=== PATIENT | female | born 1960 | race Caucasian/White ===

== ENCOUNTER 2021-03-24 11:16 | Inpatient (IN) ==
[2021-03-24] MEDS ORDERED: NS 1000 ML 1,000 ML ONE (11:20)
[2021-03-24 11:33] VITALS: BMI 38.0
[2021-03-24] MEDS ORDERED: NS 1000 ML 1,000 ML IV ONE (11:40)
--- NOTE | 2021-03-24 11:58 | DR.AMS ---
HPI Time Seen Time Seen by Provider: 03/24/21 11:40 PCP Primary Care Physician: Renu Borges HPI Comment HPI Comment: A 61 y/o female brought in to the ED via EMS service, having been found behaving strangely and talking nonsense and to imaginary folks. She was found on the floor in dirty condition. She has been acting strange for the preceding 3 days reportedly. Complaint Chief Complaint:: Pt was found by a family member on the kitchen floor, "talking out of her head", talking to ppl who are not there. Pt is disheveled and dirty, lips have dried blood on them, feet are covered in feces. Per family, pt has been acting erratic and getting worse in last 3 days. COVID-19 Coronavirus risk:travel/contact w/high risk person: No Has patient experienced Coronavirus symptoms: No Reviewed Nurses Notes Reviewed: Yes Source History Provided: Family Member and EMS Mode of Arrival Mode of Arrival: EMS Timing Onset of Chief Complaint: 03/24/21 Came On: Gradually Symptom Onset: Known Onset of Symptoms Start Date: 03/21/21 Quality Quality: Change in Behavior Context Recent: None History Of: Diabetes Associated Signs and Symptoms Associated Signs and Symptoms: None PMH PMH Past Medical History: Yes Past Medical History: Depression and Hyperthyroidism Past Medical History Comment: Graves Disease Past Surgical History: Yes Surgical History: Cholecystectomy, Thyroidectomy and Other Family History History of Family Medical Conditions: Yes Family Medical History: Hypertension Social History Alcohol Use: None Do you use any recreational Drugs:: No Lives With: Alone Lives Where: Home Travel Risk Coronavirus risk:travel/contact w/high risk person: No Has patient experienced Coronavirus symptoms: No Infectious screening In the last 2 months have you had wt loss of >10#?: NO Have you had fever, night sweats or hemotysis?: No Have you traveled outside the country in the last 6 months?: No Isolation: Standard ROS Review of Systems Constitutional: No Symptoms Reported Eyes: No Symptoms Reported ENTM: No Symptoms Reported Respiratoy: No Symptoms Reported Cardiovascular: No Symptoms Reported Gastrointestinal/Abdominal: No Symptoms Reported Genitourinary: No Symptoms Reported Neurological: No Symptoms Reported Musculoskeletal: No Symptoms Reported Integumentary: No Symptoms Reported Hematologic/Lymphatic: No Symptoms Reported Endocrine: No Symptoms Reported Psychiatric: Hallucinations PE Vitals Vital Signs: Temp Pulse Resp BP BP Pulse Ox 03/24/21 16:00 81 18 149/67 93 L 03/24/21 14:55 73 18 136/76 93 L 03/24/21 13:24 83 18 125/73 94 L 03/24/21 11:50 81 20 137/67 95 03/24/21 11:17 98.6 F 20 93 L 09/23/20 20:30 181/82 General Limitations: No Limitations General Appearance: Alert, In No Apparent Distress and Other (Poor overall hygiene/disheveled appearance.) Head Head Exam: Normal Inspection, Atraumatic and Normocephalic Eyes Eye exam: Normal Appearance and EOMI ENT ENT Exam: Normal Exam, Normal Oropharynx, Normal External Ear Exam and Mucous Membranes Dry Mouth Exam: Other (dry, chapped and black (blood vs. feces) lips and tongue ) Neck Neck Exam: Normal Inspection, Full ROM and Trachea Midline Chest Chest Inspection: Normal Inspection and Symmetric Chest Wall Rise Respiratory Respiratory Exam: Normal Lung Sounds Bilat Cardiovascular Cardiovascular Exam: Regular Rate, Normal Rhythm, Normal Heart Sounds, +S1 and +S2 Abdominal Exam Abdominal Exam: Normal Inspection, Normal Bowel Sounds and Soft Extremities Extremities Exam: Normal Inspection, Full ROM and Other (dirty arms and fingers/nails b/l.) Back Back Exam: Normal Inspection and Full ROM Neurological Neurological Exam: Alert and Oriented X3 Psychological Psychiatric Exam: Agitated Expanded Psychiatric Exam: Visual Hallucinations and Confabulating Skin Skin Exam: Dry, Intact and Other (dirt om legs, feet, toes.) COURSE Reevaluation 1st: Unchanged Education/Counseling Education/Counseling: Patient, Education and Counseling Educated On: Treatment, Diagnosis, Prognosis and Needs for Follow Up ROR Labs Reviewed Result Diagrams: 03/24/21 11:33 03/24/21 11:33 Laboratory: WBC 15.2 X10^3/uL (3.6-10.0) H 03/24/21 11:33 RBC 4.28 X10^6/uL (3.5-5.4) 03/24/21 11:33 Hgb 12.6 g/dL (12.0-16.0) 03/24/21 11:33 Hct 37.2 % (36.0-47.0) 03/24/21 11:33 MCV 87.1 fL (80.0-100.0) 03/24/21 11:33 MCH 29.4 pg (27.0-34.0) 03/24/21 11:33 MCHC 33.8 g/dL (33.0-35.0) 03/24/21 11:33 RDW 14.9 % (11.6-16.5) 03/24/21 11:33 Plt Count 259 X10^3/uL (150.0-450.0) 03/24/21 11:33 MPV 7.7 fL (7.4-11.0) 03/24/21 11:33 Neut % (Auto) 80.7 % (42.0-75.0) H 03/24/21 11:33 Lymph % (Auto) 10.5 % (21.0-51.0) L 03/24/21 11:33 [place] % (Auto) 8.2 % (0.0-13.0) 03/24/21 11:33 Eos % (Auto) 0.2 % (0.9-2.9) L 03/24/21 11:33 Baso % (Auto) 0.4 % (0.2-1.0) 03/24/21 11:33 Neut # (Auto) 12.3 x10^3/uL (2.2-4.8) H 03/24/21 11:33 Lymph # (Auto) 1.6 X10^3/uL (1.3-2.9) 03/24/21 11:33 [place] # (Auto) 1.2 x10^3/uL (0.3-0.8) H 03/24/21 11:33 Eos # (Auto) 0.0 x10^3/uL (0.0-0.2) 03/24/21 11:33 Baso # (Auto) 0.1 X10^3/uL (0.0-0.1) 03/24/21 11:33 Absolute Nucleated RBC 0.3 /100WBC 03/24/21 11:33 Sodium 137 mmol/L (136-145) 03/24/21 11:33 Corrected Sodium TNP 03/24/21 11:33 Potassium 4.1 mmol/L (3.5-5.1) 03/24/21 11:33 Chloride 101 mmol/L (98-107) 03/24/21 11:33 Carbon Dioxide 19.6 mmol/L (21-32) L 03/24/21 11:33 BUN 53 mg/dL (7-18) H 03/24/21 11:33 Creatinine 2.65 mg/dL (0.55-1.02) H 03/24/21 11:33 Est GFR (MDRD) Af Amer 23 (>60) L 03/24/21 11:33 Est GFR (MDRD) Non-Af 19 (>60) L 03/24/21 11:33 Glucose 90 mg/dL (65-99) 03/24/21 11:33 Lactic Acid 1.3 mmol/L (0.4-2.0) 03/24/21 11:33 Calcium 8.6 mg/dL (8.5-10.1) 03/24/21 11:33 Corrected Calcium TNP 03/24/21 11:33 Total Bilirubin 0.60 mg/dL (0.2-1.0) 03/24/21 11:33 AST 61 Units/L (15-37) H 03/24/21 11:33 ALT 45 Units/L (12-78) 03/24/21 11:33 Alkaline Phosphatase 110 Units/L (46-116) 03/24/21 11:33 Total Protein 8.6 g/dL (6.4-8.2) H 03/24/21 11:33 Albumin 4.1 g/dL (3.4-5.0) 03/24/21 11:33 Globulin 4.5 g/dL (2.5-4.5) 03/24/21 11:33 Albumin/Globulin Ratio 0.9 Ratio (1.1-2.1) L 03/24/21 11:33 TSH 3rd Generation 5.327 uIU/mL (0.358-3.74) H 03/24/21 11:33 Specimen Type Catherized urine 03/24/21 11:50 Urine Color Dark yellow (YELLOW) 03/24/21 11:50 Urine Appearance Hazy (CLEAR) 03/24/21 11:50 Urine pH 5.0 (5.0 - 8.0) 03/24/21 11:50 Ur Specific [place] 1.025 (1.000-1.030) 03/24/21 11:50 Urine Protein 2+ (NEGATIVE) 03/24/21 11:50 Urine Glucose (UA) Negative (NEGATIVE) 03/24/21 11:50 Urine Ketones Negative (NEGATIVE) 03/24/21 11:50 Urine Occult Blood 2+ (NEGATIVE) 03/24/21 11:50 Urine Nitrite Negative (NEGATIVE) 03/24/21 11:50 Urine Bilirubin 2+ (NEGATIVE) 03/24/21 11:50 Urine Urobilinogen Normal (NORMAL) 03/24/21 11:50 Ur Leukocyte Esterase Negative (NEGATIVE) 03/24/21 11:50 Urine RBC 0-2 /HPF (0-3) 03/24/21 11:50 Urine WBC 0-2 /HPF (0-5) 03/24/21 11:50 Ur Squamous Epith Cells Moderate /HPF (NEGATIVE) 03/24/21 11:50 Urine Bacteria Trace /HPF (NEGATIVE) 03/24/21 11:50 Hyaline Casts Few /LPF (NEGATIVE) 03/24/21 11:50 Ur Culture Indicated? No/not indicated 03/24/21 11:50 Urine Opiates Screen Negative (NEG=<300) 03/24/21 11:50 Urine Methadone Screen Negative (NEG=<300) 03/24/21 11:50 Ur Barbiturates Screen Negative (NEG=<200) 03/24/21 11:50 Ur Phencyclidine Scrn Negative (NEG=<25) 03/24/21 11:50 Ur Amphetamines Screen Positive (NEG=<1000) A 03/24/21 11:50 U Benzodiazepines Scrn Negative (NEG=<200) 03/24/21 11:50 Urine Cocaine Screen Negative (NEG=<300) 03/24/21 11:50 U Marijuana (THC) Screen Negative (NEG=<50) 03/24/21 11:50 Acetone, Semi-Quant Small (NEGATIVE) H 03/24/21 11:33 SARS-CoV-2 (PCR) Negative (NEGATIVE) 03/24/21 16:17 Influenza Type A (PCR) Negative (NEGATIVE) 03/24/21 16:17 Influenza Type B (PCR) Negative (NEGATIVE) 03/24/21 16:17 RSV (PCR) Negative (NEGATIVE) 03/24/21 16:17 Opioid Opioid Risk Tool Age (Bandar box if 16-45): No History of Preadolescent Sexual Abuse: No Total: 0 Total Score Risk Category: Low Risk Copyright: Basil FLOR predicting aberrant behaviors Diagnosis Discharge Problem: Manic behavior, Recreational drug use, Acute kidney injury, Hallucination
[2021-03-24 12:07] LABS: BASOPHILS # (AUTO) 0.1 X10^3/uL (0.0-0.1); BASOPHILS % (AUTO) 0.4 % (0.2-1.0); EOSINOPHILS % (AUTO) 0.2 % (0.9-2.9); HEMATOCRIT 37.2 % (36.0-47.0); HEMOGLOBIN 12.6 g/dL (12.0-16.0); LYMPHOCYTES # (AUTO) 1.6 X10^3/uL (1.3-2.9); LYMPHOCYTES % (AUTO) 10.5 % (21.0-51.0); MEAN CORPUSCULAR HEMOGLOBIN 29.4 pg (27.0-34.0); MEAN CORPUSCULAR HGB CONC 33.8 g/dL (33.0-35.0); MEAN CORPUSCULAR VOLUME 87.1 fL (80.0-100.0); MEAN PLATELET VOLUME 7.7 fL (7.4-11.0); MONOCYTES # (AUTO) 1.2 x10^3/uL (0.3-0.8); MONOCYTES % (AUTO) 8.2 % (0.0-13.0); NEUTROPHILS # (AUTO) 12.3 x10^3/uL (2.2-4.8); NEUTROPHILS % (AUTO) 80.7 % (42.0-75.0); PLATELET COUNT 259 X10^3/uL (150.0-450.0); RED BLOOD COUNT 4.28 X10^6/uL (3.5-5.4); RED CELL DISTRIBUTION WIDTH 14.9 % (11.6-16.5); WHITE BLOOD COUNT 15.2 X10^3/uL (3.6-10.0)
[2021-03-24 12:12] LABS: BILIRUBIN,URINE 2+ (NEGATIVE); BLOOD/HEMOGLOBIN,URINE 2+ (NEGATIVE); GLUCOSE, URINE NEGATIVE (NEGATIVE); KETONES,URINE NEGATIVE (NEGATIVE); LEUKOCYTE ESTERASE ,URINE NEGATIVE (NEGATIVE); NITRITES,URINE NEGATIVE (NEGATIVE); PROTEIN,URINE 2+ (NEGATIVE); UROBILINOGEN,URINE NORMAL (NORMAL)
[2021-03-24 12:16] LABS: ALANINE AMINOTRANSFERASE 45 Units/L (12-78); ALBUMIN 4.1 g/dL (3.4-5.0); ALKALINE PHOSPHATASE 110 Units/L (46-116); ASPARTATE AMINO TRANSFERASE 61 Units/L (15-37); BLOOD UREA NITROGEN 53 mg/dL (7-18); CALCIUM 8.6 mg/dL (8.5-10.1); CARBON DIOXIDE 19.6 mmol/L (21-32); CHLORIDE 101 mmol/L (98-107); CREATININE 2.65 mg/dL (0.55-1.02); SODIUM 137 mmol/L (136-145); TOTAL PROTEIN 8.6 g/dL (6.4-8.2); eGFR NON BLACK RACES 19 (>60)
[2021-03-24 12:19] LABS: LACTIC ACID 1.3 mmol/L (0.4-2.0)
[2021-03-24 12:20] LABS: APPEARANCE,URINE HAZY (CLEAR); COLOR,URINE DARK YELLOW (YELLOW)
[2021-03-24 12:21] LABS: BACTERIA,URINE TRACE /HPF (NEGATIVE); HYALINE CASTS, URINE FEW /LPF (NEGATIVE); RBC,URINE 0-2 /HPF (0-3); SQUAMOUS EPITHELIAL CELL,UR MODERATE /HPF (NEGATIVE)
[2021-03-24 12:22] LABS: SERUM ACETONE SMALL (NEGATIVE)
--- NOTE | 2021-03-24 13:50 | RAD ---
HISTORYAMSSTUDYCHEST, 1 [id number]/2021.TECHNIQUEAP view of the chestFINDINGSThe cardiac and mediastinal contours are within normal limits. The lungs are clear without focal consolidation or segmental collapse. No pleural effusion or pneumothorax. Soft tissue attenuation limits evaluation.IMPRESSIONNo acute pulmonary process.Electronically signed by: Viral Carrillo (Mar 24, 2021 13:48:21)
[2021-03-24] MEDS ORDERED: ATIVAN INJ 2 MG VIAL ONE ×2 (13:59→16:43)
[2021-03-24] MEDS ORDERED: ATIVAN INJ 2 MG VIAL IVP ONE (14:00)
[2021-03-24] MEDS ORDERED: HALDOL INJ IM ONE (15:16)
[2021-03-24] MEDS ORDERED: HALDOL INJ ONE (15:27)
[2021-03-24] MEDS ORDERED: GEODON INJ IM ONE ×2 (16:39→16:42)
[2021-03-24] MEDS ORDERED: BENADRYL INJ 50 MG VIAL IM ONE (16:39)
[2021-03-24] MEDS ORDERED: ATIVAN INJ 2 MG VIAL IM ONE (16:41)
[2021-03-24] MEDS ORDERED: BENADRYL INJ 50 MG VIAL ONE (16:42)
[2021-03-24] MEDS ORDERED: ZOFRAN TAB 4 MG PO PRN (22:03)
[2021-03-24] MEDS: COZAAR PO SCH (23:13)
[2021-03-24] MEDS: COREG TAB 12.5 MG PO SCH (23:13)
[2021-03-24] MEDS: GLUCOPHAGE PO SCH (23:14)
[2021-03-25 05:20] LABS: ALANINE AMINOTRANSFERASE 46 Units/L (12-78); ALBUMIN 3.7 g/dL (3.4-5.0); ALKALINE PHOSPHATASE 108 Units/L (46-116); ASPARTATE AMINO TRANSFERASE 56 Units/L (15-37); BLOOD UREA NITROGEN 64 mg/dL (7-18); CALCIUM 8.3 mg/dL (8.5-10.1); CARBON DIOXIDE 18.6 mmol/L (21-32); CHLORIDE 101 mmol/L (98-107); COR NA(FOR HYPERGLY) 138 mmol/L (136-145); CREATININE 2.27 mg/dL (0.55-1.02); SODIUM 137 mmol/L (136-145); TOTAL PROTEIN 8.3 g/dL (6.4-8.2); eGFR NON BLACK RACES 23 (>60)
[2021-03-25] MEDS: COREG TAB 12.5 MG PO SCH ×2 (09:30→21:00)
[2021-03-25] MEDS: GEODON PO SCH (09:31)
[2021-03-25] MEDS: SYNTHROID 100 mcg TAB PO SCH (09:31)
[2021-03-25] MEDS: CYMBALTA PO SCH ×2 (09:31)
[2021-03-25] MEDS: NexIUM PO SCH (09:31)
[2021-03-25] MEDS: GLUCOPHAGE PO SCH ×2 (09:31→21:00)
[2021-03-25] MEDS ORDERED: NS 1000 ML 1,000 ML IV ONE ×2 (09:56→09:57)
[2021-03-25] MEDS ORDERED: NS 1000 ML 1,000 ML ONE ×4 (10:35→19:57)
[2021-03-25 11:21] LABS: CKMB % 0.9 % (<4); CREATINE KINASE 848 Units/L (26-192); TROPONIN I < 0.02 ng/mL (0-1.5)
[2021-03-25 11:25] LABS: CREATINE KINASE MB 7.4 ng/mL (0-4.0)
[2021-03-25] MEDS: NS 1000 ML 1,000 ML IV SCH ×2 (12:44→20:00)
--- NOTE | 2021-03-25 17:10 | DR.H&P ---
H&P - History & Physical for Day of: H&P Date: 03/24/21 - Chief Complaint Chief Complaint: AMS - History of Present Illness History of Present Illness: IS A 61 YEAR OLD PATIENT OF OURS. SHE PRESENTED TO THE ER VIA EMS WITH FAMILY REPORTING THAT PATIENT HAS HAD ALTERED MENTAL STATUS FOR THE PAST 3 DAYS. FAMILY MEMBER REPORTS THAT PATIENT HAS BEEN TALKING OUT OF HER HEAD, LAYING IN FECES, AND HAS HAD ERRATIC BEHAVIOR. PATIENT HAS A PMH OF DEPRESSION, HYPERTHYROIDISM, GRAVES DISEASE, DM II, CHOLECYSTECTOMY, AND THYROIDECTOMY. ON ARRIVAL TO THE ER, PATIENT WAS ALERT BUT DISORIENTED. SHE WAS ALSO AGITATED. 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 THEY ALSO REPORT THAT SHE HAD NEURONTIN FILLED LAST WEEK, BUT THEY HAVE NOT BEEN ABLE TO FIND THE TABLETS. PATIENT HAS NOT BEEN PRESCRIBED ADIPEX. ON ARRIVAL, HER VITALS WERE 98.6-81-20-93%-137/67. LABS WERE OBTAINED. ABNORMAL LAB VALUES INCLUDE THE FOLLOWING: WBC 15.2, CARBON DIOXIDE 19.6, BUN 53, CREATININE 2.65, AST 61, TOTAL PROTEIN 8.6, TSH 5.327. URINALYSIS REVEALED: WBC 0-2, RBC 0-2, BACTERIA TRACE, LEUKOCYTES NEGATIVE, BILI 2+, OCCULT BLOOD 2+, PROTEIN 2+. TOXICOLOGY POSITIVE FOR AMPHETAMINES. ACETONES SMALL. COVID, RSV, AND INFLUENZA NEGATIVE. A CHEST XRAY WAS OBTAINED AND REVEALED: No acute pulmonary process. A MONAE CATHETER WAS PLACED WHILE IN THE ER. SHE WAS GIVEN A NORMAL SALINE BOLUS X 1 DOSE, ATIVAN 1MG IV X 2 DOSES, HALDOL 5MG IM X 1 DOSE, BENADRYL 50MG IM X 1 DOSE, GEODON 20MG IM X 1 DOSE. PATIENT WAS ADMITTED TO THE HOSPITAL FOR FURTHER EVALUATION AND TREATMENT OF ACUTE KIDNEY INJURY, MANIC BEHAVIOR, RECREATIONAL DRUG USE, AND TYPE 2 DIABETES. SHE WILL BE GIVEN TWO NORMAL SALINE BOLUSES, THEN START NORMAL SALINE AT 125ML/HR, CIPRO, AND WE WILL ALSO RESUME HER HOME MEDICATIONS. OTHERWISE, WE PLAN TO FOLLOW UP WITH AM LABS AND CONTINUE TO MONITOR. TIME SPENT ON CLINICAL ASSESSMENT, REVIEWING LABS AND IMAGING, DECISION MAKING, AND DOCUMENTATION GREATER THAN 75 MINUTES. - Past Medical History Past Medical History: Depression, Diabetes, Hyperthyroidism - Past Surgical History Surgical History: Cholecystectomy, Thyroidectomy - Family History Family Medical History: Hypertension - Social History Does patient currently use any type of tobacco product: No Have you used tobacco products in the last 12 months: No Type of Tobacco Use: None Does any household member use tobacco: No Alcohol Use: None Drug Use: None - Medications Home Medications: hydrogen peroxide Allergy (Verified 03/24/21 17:50) CONTINUE taking the following medications carvedilol 12.5 mg PO BID 03/24/21 [History] cetirizine 10 mg PO ONCE 03/24/21 [History] duloxetine 30 mg PO DAILY 03/24/21 [History] duloxetine 60 mg PO DAILY 03/24/21 [History] esomeprazole magnesium 40 mg PO DAILY 03/24/21 [History] gabapentin 300 mg PO QHS 03/24/21 [History] metformin 1,000 mg PO BID 03/24/21 [History] sulfamethoxazole-trimethoprim 1 tab PO BID 03/24/21 [History] - Review of Systems Constitutional: Weakness Eyes: No Symptoms Reported ENT: No Symptoms Reported Respiratory: No Symptoms Reported Cardiovascular: No Symptoms Reported Gastrointestinal: No Symptoms Reported Genitourinary: No Symptoms Reported Musculoskeletal: No Symptoms Reported Skin: No Symptoms Reported Neurological: Confusion - Physical Exam Vital Signs: Temperature 97.8 F Pulse Rate [Left Brachial] 75 Pulse Rate 82 Respiratory Rate 18 Blood Pressure [Left Arm] 164/70 Blood Pressure 123/58 O2 Sat by Pulse Oximetry 95 Oriented: Not Oriented Eyes: Normal Ear: Normal Nose: Normal Throat: Normal Respiratory: Diminished Throughout Cardiovascular: Normal : Normal Auscultation: Bowel Sounds: Normal Palpation: Normal Tenderness: Normal Skin: Normal Musculoskeletal: Normal Psychiatric: Normal Mood Description: Calm Affect: Normal Speech Pattern: Clear - Assessment/Plan (1) Acute kidney injury Status: Acute Plan: ADMIT, NORMAL SALINE BOLUS X 2, THEN NORMAL SALINE AT 125 ML/HR, CIPRO, RESUME HOME MEDICATIONS (2) UTI (urinary tract infection) Qualifiers: Urinary tract infection type: acute cystitis Hematuria presence: with hematuria Qualified Code(s): N30.01 - Acute cystitis with hematuria Status: Acute (3) Manic behavior Status: Acute (4) Recreational drug use Status: Acute (5) Diabetes mellitus Qualifiers: Diabetes mellitus type: type 2 Diabetes mellitus medical terminologist insulin use: with medical terminologist use Diabetes mellitus complication status: with hyperglycemia Qualified Code(s): E11.65 - Type 2 diabetes mellitus with hyperglycemia; Z79.4 - longterm (current) use of insulin Status: Chronic - Allergies Allergies/Adverse Reactions: Allergies Allergy/AdvReac Type Severity Reaction Status Date / Time hydrogen peroxide Allergy Verified 03/24/21 17:50
[2021-03-25] MEDS ORDERED: HumuLIN R SUBCUT PRN (17:49)
[2021-03-25 18:21] LABS: CKMB % 0.8 % (<4); CREATINE KINASE 713 Units/L (26-192); TROPONIN I < 0.02 ng/mL (0-1.5)
[2021-03-25 18:22] LABS: CREATINE KINASE MB 5.8 ng/mL (0-4.0)
[2021-03-25] MEDS ORDERED: SNACK - Diabetic Appropriate PO SCH (20:00)
[2021-03-25] MEDS ORDERED: GLUCOPHAGE ONE (20:43)
[2021-03-25] MEDS: COZAAR PO SCH (21:00)
[2021-03-25] MEDS ORDERED: NEURONTIN CAP 300 MG PO SCH (21:00)
[2021-03-26] MEDS ORDERED: NS 1000 ML 1,000 ML ONE (03:36)
[2021-03-26] MEDS: NS 1000 ML 1,000 ML IV SCH ×2 (03:38→09:06)
[2021-03-26 07:31] LABS: ALANINE AMINOTRANSFERASE 39 Units/L (12-78); ALKALINE PHOSPHATASE 93 Units/L (46-116); ASPARTATE AMINO TRANSFERASE 40 Units/L (15-37); BLOOD UREA NITROGEN 51 mg/dL (7-18); CARBON DIOXIDE 22.6 mmol/L (21-32); CHLORIDE 105 mmol/L (98-107); CKMB % 1.1 % (<4); COR CA(FOR HYPOALB) 8.8 mg/dL (8.5-10.1); COR NA(FOR HYPERGLY) 139 mmol/L (136-145); CREATINE KINASE 371 Units/L (26-192); CREATINE KINASE MB 3.9 ng/mL (0-4.0); CREATININE 1.15 mg/dL (0.55-1.02); SODIUM 138 mmol/L (136-145); TOTAL PROTEIN 7.1 g/dL (6.4-8.2); TROPONIN I < 0.02 ng/mL (0-1.5); eGFR NON BLACK RACES 51 (>60)
[2021-03-26 08:16] LABS: BASOPHILS % (AUTO) 0.7 % (0.2-1.0); EOSINOPHILS # (AUTO) 0.3 x10^3/uL (0.0-0.2); EOSINOPHILS % (AUTO) 4.6 % (0.9-2.9); HEMATOCRIT 32.7 % (36.0-47.0); LYMPHOCYTES # (AUTO) 1.6 X10^3/uL (1.3-2.9); LYMPHOCYTES % (AUTO) 22.9 % (21.0-51.0); MEAN CORPUSCULAR HEMOGLOBIN 29.8 pg (27.0-34.0); MEAN CORPUSCULAR HGB CONC 33.6 g/dL (33.0-35.0); MEAN CORPUSCULAR VOLUME 88.7 fL (80.0-100.0); MEAN PLATELET VOLUME 7.6 fL (7.4-11.0); MONOCYTES # (AUTO) 0.6 x10^3/uL (0.3-0.8); MONOCYTES % (AUTO) 8.5 % (0.0-13.0); NEUTROPHILS # (AUTO) 4.3 x10^3/uL (2.2-4.8); NEUTROPHILS % (AUTO) 63.3 % (42.0-75.0); PLATELET COUNT 181 X10^3/uL (150.0-450.0); RED BLOOD COUNT 3.69 X10^6/uL (3.5-5.4); RED CELL DISTRIBUTION WIDTH 14.6 % (11.6-16.5); WHITE BLOOD COUNT 6.8 X10^3/uL (3.6-10.0)
[2021-03-26] MEDS: CYMBALTA PO SCH ×2 (08:28)
[2021-03-26] MEDS: NexIUM PO SCH (08:28)
[2021-03-26] MEDS: GLUCOPHAGE PO SCH (08:28)
[2021-03-26] MEDS: COREG TAB 12.5 MG PO SCH (08:28)
[2021-03-26] MEDS: GEODON PO SCH (08:28)
[2021-03-26] MEDS: SYNTHROID 100 mcg TAB PO SCH (08:28)
[2021-03-26 12:18] VITALS: BP 143/64
== END 2021-03-26 12:30 | disposition home or self-care (01) | DRG 683 ==
LOC: ER 11:16 → U 11:16 → OBSVTOIN 18:57 → U 20:30
PROVIDERS: ADMIT Internal Medicine; ATTEND Internal Medicine
DX: R41.82 Altered mental status, unspecified; I10 Essential (primary) hypertension; F15.99 Other stimulant use, unspecified with unspecified stimulant-induced disorder; E05.00 Thyrotoxicosis with diffuse goiter without thyrotoxic crisis or storm; F30.8 Other manic episodes; E11.65 Type 2 diabetes mellitus with hyperglycemia; N17.8 Other acute kidney failure; F19.90 Other psychoactive substance use, unspecified, uncomplicated; K21.9 Gastro-esophageal reflux disease without esophagitis; N30.01 Acute cystitis with hematuria; Z79.4 Long term (current) use of insulin

== ENCOUNTER 2023-01-12 10:57 | Inpatient (IN) ==
[2023-01-12] MEDS ORDERED: NS 250 ML IV 250 ML IV ONE ×2 (12:00→14:55)
[2023-01-12] MEDS ORDERED: MORPHINE SULFATE INJ 2 MG INJ IVP PRN (14:45)
[2023-01-12] MEDS ORDERED: READI-CAT 2 ONE (14:55)
[2023-01-12 15:02] LABS: BASOPHILS % (AUTO) 0.6 % (0.2-1.0); EOSINOPHILS # (AUTO) 0.1 x10^3/uL (0.0-0.2); EOSINOPHILS % (AUTO) 1.4 % (0.9-2.9); HEMATOCRIT 36.3 % (36.0-47.0); HEMOGLOBIN 12.5 g/dL (12.0-16.0); LYMPHOCYTES # (AUTO) 2.3 X10^3/uL (1.3-2.9); LYMPHOCYTES % (AUTO) 35.3 % (21.0-51.0); MEAN CORPUSCULAR HEMOGLOBIN 29.7 pg (27.0-34.0); MEAN CORPUSCULAR HGB CONC 34.5 g/dL (33.0-35.0); MEAN CORPUSCULAR VOLUME 85.9 fL (80.0-100.0); MEAN PLATELET VOLUME 8.7 fL (7.4-11.0); MONOCYTES # (AUTO) 0.5 x10^3/uL (0.3-0.8); MONOCYTES % (AUTO) 7.4 % (0.0-13.0); NEUTROPHILS # (AUTO) 3.6 x10^3/uL (2.2-4.8); NEUTROPHILS % (AUTO) 55.3 % (42.0-75.0); PLATELET COUNT 162 X10^3/uL (150.0-450.0); RED BLOOD COUNT 4.23 X10^6/uL (3.5-5.4); RED CELL DISTRIBUTION WIDTH 14.2 % (11.6-16.5); WHITE BLOOD COUNT 6.6 X10^3/uL (3.6-10.0)
[2023-01-12] MEDS: NS 1,000 ML IV 1,000 ML IV SCH (15:09)
[2023-01-12] MEDS: ZOFRAN INJ 4 MG VIAL IVP PRN (15:10)
[2023-01-12 15:41] LABS: ALANINE AMINOTRANSFERASE 48 Units/L (12-78); ALBUMIN 3.9 g/dL (3.4-5.0); ALKALINE PHOSPHATASE 58 Units/L (46-116); AMYLASE 33 Units/L (25-115); ASPARTATE AMINO TRANSFERASE 37 Units/L (15-37); BLOOD UREA NITROGEN 13 mg/dL (7-18); CARBON DIOXIDE 29.3 mmol/L (21-32); CHLORIDE 100 mmol/L (98-107); COR NA(FOR HYPERGLY) 137 mmol/L (136-145); CREATININE 0.77 mg/dL (0.55-1.02); GLUCOSE 233 mg/dL (65-99); LIPASE 173 Units/L (73-393); POTASSIUM 3.9 mmol/L (3.5-5.1); SODIUM 134 mmol/L (136-145); TOTAL PROTEIN 7.4 g/dL (6.4-8.2); eGFR NON BLACK RACES > 60 (>60)
[2023-01-12 16:19] VITALS: BMI 38.2
[2023-01-12] MEDS ORDERED: OMNIPAQUE 350 mg/mL 100 mL BTL 100 ML ONE (16:36)
[2023-01-12] MEDS ORDERED: NS 100 ML IV 100 ML ONE (16:36)
[2023-01-12] MEDS ORDERED: MYLICON TAB 80 MG CHEW PO ONE (16:39)
[2023-01-12] MEDS: MYLICON TAB 80 MG CHEW PO PRN (16:41)
[2023-01-12 17:10] LABS: BILIRUBIN,URINE NEGATIVE (NEGATIVE); BLOOD/HEMOGLOBIN,URINE NEGATIVE (NEGATIVE); GLUCOSE, URINE NEGATIVE (NEGATIVE); KETONES,URINE NEGATIVE (NEGATIVE); LEUKOCYTE ESTERASE ,URINE NEGATIVE (NEGATIVE); NITRITES,URINE NEGATIVE (NEGATIVE); PH,URINE 6.5 (5.0 - 8.0); PROTEIN,URINE NEGATIVE (NEGATIVE); UROBILINOGEN,URINE NORMAL (NORMAL)
[2023-01-12 17:20] LABS: APPEARANCE,URINE CLEAR (CLEAR); COLOR,URINE STRAW (YELLOW)
--- NOTE | 2023-01-12 19:13 | CT ---
HISTORYAbdominal pain with nauseaSTUDYABDOMEN/PELVIS WITH CONCOMPARISONSeptember 2021TECHNIQUEAxial CT images of the abdomen and pelvis were obtained after the administration of IV contrast, 100 mL Omnipaque 350, and reformatted into coronal and sagittal planes for further evaluation. Enteric contrast was administered.Radiation dose: 715.56 mGy-cm total DLPFINDINGSLung bases are clear.Stomach appears normal.Lobulated margin of the liver; concerning for cirrhosis.Spleen, pancreas and adrenal glands are unremarkable.Status post cholecystectomy without biliary dilatation.Homogeneous enhancement of the kidneys without hydronephrosis or hydroureter.Unremarkable appearance of the urinary bladder.Imaged reproductive structures are unremarkable.Colonic diverticulosis without diverticulitis.Otherwise, unremarkable appearance of the small and large bowel.No evidence of acute appendicitis.No pneumoperitoneum.No significant fluid collection.No adenopathy.No acute osseous abnormality.Mild multilevel degenerative disc and [id number] degenerative joint changes.Superior endplate height loss at T12; without significant change.IMPRESSION1. No acute intra-abdominal abnormality detected.2. Lobulation of the liver margin is concerning for cirrhosis. No focal liver lesion identified.3. Colonic diverticulosis without diverticulitis.Electronically signed by: Romel Mccartney (Jan 12, 2023 19:12:51)
[2023-01-12] MEDS ORDERED: ACCUNEB 1.25 MG NEBULE ONE (20:03)
[2023-01-12] MEDS: ZETIA TAB 10 MG PO SCH (20:17)
[2023-01-12] MEDS: COREG TAB 12.5 MG PO SCH (20:17)
[2023-01-12] MEDS: NEURONTIN CAP 300 MG PO SCH (20:17)
[2023-01-12] MEDS: ATIVAN TAB 1 MG PO PRN (20:17)
[2023-01-12] MEDS: AMBIEN PO PRN (20:17)
[2023-01-12] MEDS: TRICOR TAB 145 MG PO SCH (20:17)
[2023-01-12] MEDS: BENICAR PO SCH (20:18)
[2023-01-12] MEDS ORDERED: PROVENTIL NEB TX 0.083% 2.5MG/ 3ML NEB PRN ×2 (20:37→21:00)
[2023-01-12] MEDS ORDERED: PATIENT'S HOME MEDICATION SUBCUT SCH (21:00)
[2023-01-12] MEDS ORDERED: PROVENTIL NEB TX 0.083% 2.5MG/ 3ML NEB SCH (21:00)
[2023-01-12] MEDS ORDERED: NexIUM PO SCH (21:00)
[2023-01-12] MEDS: TYLENOL 325 MG TAB PO PRN (21:51)
[2023-01-13 05:03] LABS: BASOPHILS % (AUTO) 0.6 % (0.2-1.0); EOSINOPHILS # (AUTO) 0.1 x10^3/uL (0.0-0.2); EOSINOPHILS % (AUTO) 1.9 % (0.9-2.9); HEMATOCRIT 34.6 % (36.0-47.0); HEMOGLOBIN 11.9 g/dL (12.0-16.0); LYMPHOCYTES # (AUTO) 2.1 X10^3/uL (1.3-2.9); LYMPHOCYTES % (AUTO) 35.7 % (21.0-51.0); MEAN CORPUSCULAR HEMOGLOBIN 29.8 pg (27.0-34.0); MEAN CORPUSCULAR HGB CONC 34.5 g/dL (33.0-35.0); MEAN CORPUSCULAR VOLUME 86.4 fL (80.0-100.0); MEAN PLATELET VOLUME 9.2 fL (7.4-11.0); MONOCYTES # (AUTO) 0.5 x10^3/uL (0.3-0.8); NEUTROPHILS # (AUTO) 3.2 x10^3/uL (2.2-4.8); NEUTROPHILS % (AUTO) 53.8 % (42.0-75.0); PLATELET COUNT 148 X10^3/uL (150.0-450.0); RED BLOOD COUNT 4.01 X10^6/uL (3.5-5.4); RED CELL DISTRIBUTION WIDTH 14.1 % (11.6-16.5)
[2023-01-13 05:08] LABS: AMMONIA 37 umol/L (11-32)
[2023-01-13 05:13] LABS: ALANINE AMINOTRANSFERASE 50 Units/L (12-78); ALBUMIN 3.6 g/dL (3.4-5.0); ALKALINE PHOSPHATASE 58 Units/L (46-116); ASPARTATE AMINO TRANSFERASE 48 Units/L (15-37); BLOOD UREA NITROGEN 13 mg/dL (7-18); CALCIUM 8.4 mg/dL (8.5-10.1); CARBON DIOXIDE 29.9 mmol/L (21-32); CHLORIDE 100 mmol/L (98-107); COR NA(FOR HYPERGLY) 142 mmol/L (136-145); CREATININE 0.92 mg/dL (0.55-1.02); GLUCOSE 370 mg/dL (65-99); SODIUM 136 mmol/L (136-145); TOTAL PROTEIN 6.9 g/dL (6.4-8.2); eGFR NON BLACK RACES > 60 (>60)
[2023-01-13] MEDS: NS 1,000 ML IV 1,000 ML IV SCH ×3 (05:33→20:35)
[2023-01-13] MEDS: SYNTHROID 125 mcg TAB PO SCH (05:33)
[2023-01-13] MEDS: SYNTHROID 100 mcg TAB PO SCH (05:33)
[2023-01-13] MEDS: NovoLIN R (or HumuLIN R) SUBCUT PRN ×3 (06:04→20:51)
[2023-01-13] MEDS: NEURONTIN CAP 300 MG PO SCH ×2 (08:23→20:36)
[2023-01-13] MEDS: COREG TAB 12.5 MG PO SCH ×2 (08:23→20:37)
--- NOTE | 2023-01-13 11:14 | DR.UPDATE ---
H&P Update H&P Reviewed: Yes Any changes to H&P?: Yes Changes noted:: WAS A DIRECT ADMISSION TO THE HOSPITAL OBSERVATION STATUS FOR FURTHER EVALUATION AND TREATMENT OF ACUTE EPIGASTRIC AND LUQ ABDOMINAL PAIN, NAUSEA AND VOMITING, AND DECREASED ORAL INTAKE. PATIENT REPORTS THAT HER SYMPTOMS STARTED ABOUT TWO WEEKS PRIOR. SHE DESCRIBES THE ABDOMINAL PAIN INTERMITTENT, SHARP, AND RATES IT A 8/10. IT IS LOCATED IN THE EPIGASTRIC REGION AND RADIATES TO THE LUQ. SHE ADMITS TO TAKING ZOFRAN, DRAMAMINE, AND GAS X AT HOME WITHOUT SIGNIFICANT IMPROVEMENT IN SYMPTOMS. SHE HAS A PMH OF HTN, TYPE 2 DM, DIABETIC NEUROPATHY, GERD, PUD, HYPERTHYROIDISM, ANXIETY, DEPRESSION. ON ARRIVAL TO THE HOSPTIAL, HER VITALS WERE: 98.2-53-20-97%-186/84. LABS WERE OBTAINED. WBC 6.6, RBC 4.23, HGB 12.5, HCT 36.3, PLT COUNT 162, SODIUM 134, POTASSIUM 3.9, CHLORIDE 100, BUN 13, CREATININE 0.77, GLUCOSE 233, CALCIUM 9.0, AST 37, ALT 48, ALK PHOS 58, TOTAL PROTEIN 7.4, ALBUMIN 3.9, AMYLASE 33, LIPASE 173. URINALYSIS WAS OBTAINED AND WAS UNREMARKABLE. AN ABDOMEN/PELVIS CT WITH CONTRAST WAS OBTAINED AND REVEALED: 1. No acute intra-abdominal abnormality detected.2. Lobulation of the liver margin is concerning for cirrhosis. No focal liver lesion identified. 3. Colonic diverticulosis without diverticulitis. SHE WAS STARTED ON NORMAL SALINE AT 75 ML/HR, PEPCID 20MG IV Q12H, PROTONIX 40MG IV BID, PROVENTIL NEBS BID PRN, OTBS ACHS, HUMULIN R SLIDING SCALE, REGLAN 5MG ACHS, MORPHINE 2MG IV Q4H PRN, ZOFRAN 4MG IV Q4H PRN, AMBIEN 10MG PO HS PRN, LEVEMIR 16 UNITS SC HS, AND HER HOME MEDICATIONS WERE RESUMED. HOME MEDS INCLUDE: TYLENOL, ZETIA, TRICOR, NEURONTIN, MUCINEX, SYNTHROID, ATIVAN, REGLAN, BENICAR, AND MYLICON. OTHERWISE, WE WILL FOLLOW-UP WITH AM LABS AND CONTINUE TO MONITOR. WE WILL SET HER UP FOR A GASTRIC EMPTYING STUDY AN OUTPATIENT AND WILL ALSO REFER HER TO AN OUTPA TIENT FOLLOWING DISCHARGE. TIME SPENT ON CLINICAL ASSESSMENT, REVIEWING LABS AND IMAGING, DECISION MAKING, AND DOCUMENTATION GREATER THAN 75 MINUTES.
[2023-01-13] MEDS: REGLAN TAB 5 MG PO SCH ×3 (11:24→20:37)
[2023-01-13] MEDS: MUCINEX EXPECTORANT PO SCH ×2 (11:24→20:38)
[2023-01-13] MEDS: PEPCID 20 MG VIAL 20 MG in NS 50 ML IV 50 ML IV SCH ×2 (11:48→20:38)
[2023-01-13] MEDS: PROTONIX INJ 40 MG VIAL IVP SCH ×2 (11:48→20:37)
[2023-01-13] MEDS: TYLENOL 325 MG TAB PO PRN (14:44)
[2023-01-13] MEDS: ZETIA TAB 10 MG PO SCH (20:36)
[2023-01-13] MEDS: TRICOR TAB 145 MG PO SCH (20:36)
[2023-01-13] MEDS: SNACK - Diabetic Appropriate PO SCH (20:37)
[2023-01-13] MEDS: BENICAR PO SCH (20:37)
[2023-01-13] MEDS: AMBIEN PO PRN (20:51)
[2023-01-13] MEDS: LEVEMIR SC SCH (20:52)
[2023-01-13] MEDS: ATIVAN TAB 1 MG PO PRN (23:06)
[2023-01-14 05:31] LABS: BASOPHILS % (AUTO) 0.6 % (0.2-1.0); EOSINOPHILS # (AUTO) 0.2 x10^3/uL (0.0-0.2); HEMATOCRIT 35.4 % (36.0-47.0); HEMOGLOBIN 12.2 g/dL (12.0-16.0); LYMPHOCYTES # (AUTO) 2.4 X10^3/uL (1.3-2.9); LYMPHOCYTES % (AUTO) 38.1 % (21.0-51.0); MEAN CORPUSCULAR HEMOGLOBIN 29.6 pg (27.0-34.0); MEAN CORPUSCULAR HGB CONC 34.5 g/dL (33.0-35.0); MEAN CORPUSCULAR VOLUME 85.8 fL (80.0-100.0); MEAN PLATELET VOLUME 9.1 fL (7.4-11.0); MONOCYTES # (AUTO) 0.4 x10^3/uL (0.3-0.8); MONOCYTES % (AUTO) 6.7 % (0.0-13.0); NEUTROPHILS # (AUTO) 3.3 x10^3/uL (2.2-4.8); NEUTROPHILS % (AUTO) 51.6 % (42.0-75.0); PLATELET COUNT 147 X10^3/uL (150.0-450.0); RED BLOOD COUNT 4.13 X10^6/uL (3.5-5.4); RED CELL DISTRIBUTION WIDTH 14.4 % (11.6-16.5); WHITE BLOOD COUNT 6.4 X10^3/uL (3.6-10.0)
[2023-01-14] MEDS: NovoLIN R (or HumuLIN R) SUBCUT PRN ×4 (05:47→20:39)
[2023-01-14] MEDS: SYNTHROID 125 mcg TAB PO SCH (05:48)
[2023-01-14] MEDS: REGLAN TAB 5 MG PO SCH ×4 (05:49→20:32)
[2023-01-14] MEDS: SYNTHROID 100 mcg TAB PO SCH (05:49)
[2023-01-14 05:54] LABS: ALANINE AMINOTRANSFERASE 52 Units/L (12-78); ALBUMIN 3.8 g/dL (3.4-5.0); ALKALINE PHOSPHATASE 52 Units/L (46-116); ASPARTATE AMINO TRANSFERASE 48 Units/L (15-37); BLOOD UREA NITROGEN 9 mg/dL (7-18); CALCIUM 8.4 mg/dL (8.5-10.1); CARBON DIOXIDE 28.9 mmol/L (21-32); CHLORIDE 105 mmol/L (98-107); COR NA(FOR HYPERGLY) 145 mmol/L (136-145); GLUCOSE 199 mg/dL (65-99); POTASSIUM 3.8 mmol/L (3.5-5.1); SODIUM 143 mmol/L (136-145); TOTAL PROTEIN 7.1 g/dL (6.4-8.2); eGFR NON BLACK RACES > 60 (>60)
[2023-01-14] MEDS: PROTONIX INJ 40 MG VIAL IVP SCH ×2 (09:02→20:33)
[2023-01-14] MEDS: NEURONTIN CAP 300 MG PO SCH ×2 (09:02→20:32)
[2023-01-14] MEDS: NS 1,000 ML IV 1,000 ML IV SCH ×2 (09:02→20:35)
[2023-01-14] MEDS: PEPCID 20 MG VIAL 20 MG in NS 50 ML IV 50 ML IV SCH ×2 (09:02→20:38)
[2023-01-14] MEDS: MUCINEX EXPECTORANT PO SCH ×2 (09:03→20:35)
[2023-01-14] MEDS: COREG TAB 12.5 MG PO SCH ×2 (09:03→20:33)
[2023-01-14] MEDS ORDERED: GYLCERIN ADULT SUPP RECTAL SCH (12:00)
[2023-01-14] MEDS: CHLORTHALIDONE PO SCH (12:02)
[2023-01-14] MEDS ORDERED: MILK OF MAGNESIA PO PRN (13:59)
[2023-01-14] MEDS ORDERED: MILK OF MAGNESIA ONE (14:24)
[2023-01-14] MEDS: ZOFRAN INJ 4 MG VIAL IVP PRN ×2 (14:59→19:49)
--- NOTE | 2023-01-14 19:40 | PCM.PROG ---
Progress Note Progress Note for Day of Date of Exam: 01/14/23 Subjective Subjective: This is a 63-year-old white female who is a patient of Dr. Osorio. He direct admitted her yesterday after she had been complaining of a 2-week history of epigastric pain that radiated to the left lower quadrant. Pain was 8 out of 10 and sharp in nature. The pain is occurring intermittently and is causing her not to be able to eat anything hardly. She had a CT scan of her abdomen and pelvis with contrast coming in and it showed that she has cirrhosis of the liver likely secondary to fatty infiltration. She also has diverticulosis without diverticulitis at this time. Suspect the pain is likely coming from her cirrhotic liver. She had been taking Dramamine, Zofran and Gas- X at home without much relief. I see today that she is also hypertensive and has been since yesterday. Past Medical Family Social History Allergies: Allergies hydrogen peroxide Allergy (Unknown, Verified 01/12/23 12:05) sumatriptan [From Imitrex] Allergy (Verified 01/12/23 12:05) Review of Systems ROS: No change since H&P Vital Signs and I&O's Vital Signs: Vital Signs Temperature 97.7 F Temperature 97.1 F Pulse Rate [Brachial] 55 Pulse Rate [Brachial] 60 Respiratory Rate 20 Respiratory Rate 18 Blood Pressure [Right Arm] 147/67 Blood Pressure [Right Arm] 150/66 O2 Sat by Pulse Oximetry 96 O2 Sat by Pulse Oximetry 94 Intake and Output: Intake & Output 01/12/23 01/13/23 01/14/23 01/15/23 11:59 11:59 11:59 11:59 Intake Total 1803 / 1803 3811 / 3811 1480 / 1480 Balance 1803 / 1803 3811 / 3811 1480 / 1480 Physical Exam Oriented: Normal Eyes: Normal Throat: Normal Respiratory: Normal Cardiovascular: Normal Auscultation: Bowel Sounds: Normal Palpation: Normal Tenderness: Normal Skin: Decreased Turgur Musculoskeletal: Normal Psychiatric: Normal and Agitation Mood Description: Appropriate Affect: Normal Speech Pattern: Clear and Appropriate Laboratory and Diagnostics Result Diagrams: 01/14/23 04:35 01/14/23 04:35 Labs: Laboratory WBC 6.4 X10^3/uL (3.6-10.0) 01/14/23 04:35 RBC 4.13 X10^6/uL (3.5-5.4) 01/14/23 04:35 Hgb 12.2 g/dL (12.0-16.0) 01/14/23 04:35 Hct 35.4 % (36.0-47.0) L 01/14/23 04:35 MCV 85.8 fL (80.0-100.0) 01/14/23 04:35 MCH 29.6 pg (27.0-34.0) 01/14/23 04:35 MCHC 34.5 g/dL (33.0-35.0) 01/14/23 04:35 RDW 14.4 % (11.6-16.5) 01/14/23 04:35 Plt Count 147 X10^3/uL (150.0-450.0) L 01/14/23 04:35 MPV 9.1 fL (7.4-11.0) 01/14/23 04:35 Neut % (Auto) 51.6 % (42.0-75.0) 01/14/23 04:35 Lymph % (Auto) 38.1 % (21.0-51.0) 01/14/23 04:35 [place] % (Auto) 6.7 % (0.0-13.0) 01/14/23 04:35 Eos % (Auto) 3.0 % (0.9-2.9) H 01/14/23 04:35 Baso % (Auto) 0.6 % (0.2-1.0) 01/14/23 04:35 Neut # (Auto) 3.3 x10^3/uL (2.2-4.8) 01/14/23 04:35 Lymph # (Auto) 2.4 X10^3/uL (1.3-2.9) 01/14/23 04:35 [place] # (Auto) 0.4 x10^3/uL (0.3-0.8) 01/14/23 04:35 Eos # (Auto) 0.2 x10^3/uL (0.0-0.2) 01/14/23 04:35 Baso # (Auto) 0.0 X10^3/uL (0.0-0.1) 01/14/23 04:35 Absolute Nucleated RBC 0.1 /100WBC 01/14/23 04:35 Sodium 143 mmol/L (136-145) 01/14/23 04:35 Corrected Sodium 145 mmol/L (136-145) 01/14/23 04:35 Potassium 3.8 mmol/L (3.5-5.1) 01/14/23 04:35 Chloride 105 mmol/L (98-107) 01/14/23 04:35 Carbon Dioxide 28.9 mmol/L (21-32) 01/14/23 04:35 BUN 9 mg/dL (7-18) 01/14/23 04:35 Creatinine 0.70 mg/dL (0.55-1.02) 01/14/23 04:35 Est GFR (MDRD) Af Amer > 60 (>60) 01/14/23 04:35 Est GFR (MDRD) Non-Af > 60 (>60) 01/14/23 04:35 Glucose 199 mg/dL (65-99) H 01/14/23 04:35 POC Glucose (mg/dL) 288 mg/dL (65-99) H 01/14/23 15:58 Calcium 8.4 mg/dL (8.5-10.1) L 01/14/23 04:35 Corrected Calcium TNP 01/14/23 04:35 Total Bilirubin 0.50 mg/dL (0.2-1.0) 01/14/23 04:35 AST 48 Units/L (15-37) H 01/14/23 04:35 ALT 52 Units/L (12-78) 01/14/23 04:35 Alkaline Phosphatase 52 Units/L (46-116) 01/14/23 04:35 Ammonia 37 umol/L (11-32) H 01/13/23 04:16 Total Protein 7.1 g/dL (6.4-8.2) 01/14/23 04:35 Albumin 3.8 g/dL (3.4-5.0) 01/14/23 04:35 Globulin 3.3 g/dL (2.5-4.5) 01/14/23 04:35 Albumin/Globulin Ratio 1.2 Ratio (1.1-2.1) 01/14/23 04:35 Amylase 33 Units/L (25-115) 01/12/23 14:48 Lipase 173 Units/L (73-393) 01/12/23 14:48 Specimen Type Clean catch urine 01/12/23 17:00 Urine Color Straw (YELLOW) 01/12/23 17:00 Urine Appearance Clear (CLEAR) 01/12/23 17:00 Urine pH 6.5 (5.0 - 8.0) 01/12/23 17:00 Ur Specific [place] 1.015 (1.000-1.030) 01/12/23 17:00 Urine Protein Negative (NEGATIVE) 01/12/23 17:00 Urine Glucose (UA) Negative (NEGATIVE) 01/12/23 17:00 Urine Ketones Negative (NEGATIVE) 01/12/23 17:00 Urine Blood Negative (NEGATIVE) 01/12/23 17:00 Urine Nitrite Negative (NEGATIVE) 01/12/23 17:00 Urine Bilirubin Negative (NEGATIVE) 01/12/23 17:00 Urine Urobilinogen Normal (NORMAL) 01/12/23 17:00 Ur Leukocyte Esterase Negative (NEGATIVE) 01/12/23 17:00 Radiology Reviewed: Yes Plan (1) Cirrhosis of liver: Status: Acute Plan: I discontinued the patient's Tylenol at this time. (2) Epigastric pain: Status: Acute Plan: Continue Protonix 40 mg IV twice daily. (3) Hypertension: Status: Acute Narrative Support Text: Blood pressure is uncontrolled at this time. Plan: I will start the patient on chlorthalidone 25 mg 1 p.o. daily. Reevaluate patient's hypertension tomorrow morning. (4) DM (diabetes mellitus), type 2, uncontrolled: Status: Acute Plan: Flat scale regular insulin per protocol. (5) Hypothyroidism: Status: Acute Plan: Continue levothyroxine. (6) Depression: Status: Acute Qualifiers: Active/Remission status: currently active Depression Type: major depressive disorder Major depression episode severity: unspecified Major depression recurrence: unspecified whether recurrent Qualified Code(s): F32.9 - Major depressive disorder, single episode, unspecified
[2023-01-14] MEDS: MYLICON TAB 80 MG CHEW PO PRN (19:49)
[2023-01-14] MEDS: SNACK - Diabetic Appropriate PO SCH (19:49)
[2023-01-14] MEDS: AMBIEN PO PRN (20:32)
[2023-01-14] MEDS: BENICAR PO SCH (20:32)
[2023-01-14] MEDS: ZETIA TAB 10 MG PO SCH (20:33)
[2023-01-14] MEDS: TRICOR TAB 145 MG PO SCH (20:33)
[2023-01-14] MEDS: LEVEMIR SC SCH (20:34)
[2023-01-14] MEDS: ATIVAN TAB 1 MG PO PRN (22:00)
[2023-01-15] MEDS: REGLAN TAB 5 MG PO SCH ×4 (05:40→20:22)
[2023-01-15] MEDS: SYNTHROID 100 mcg TAB PO SCH (05:40)
[2023-01-15] MEDS: SYNTHROID 125 mcg TAB PO SCH (05:40)
[2023-01-15] MEDS: NovoLIN R (or HumuLIN R) SUBCUT PRN ×4 (05:41→20:24)
[2023-01-15 06:08] LABS: BASOPHILS % (AUTO) 0.5 % (0.2-1.0); EOSINOPHILS # (AUTO) 0.1 x10^3/uL (0.0-0.2); EOSINOPHILS % (AUTO) 2.8 % (0.9-2.9); HEMATOCRIT 33.8 % (36.0-47.0); HEMOGLOBIN 11.8 g/dL (12.0-16.0); LYMPHOCYTES # (AUTO) 1.8 X10^3/uL (1.3-2.9); LYMPHOCYTES % (AUTO) 35.1 % (21.0-51.0); MEAN CORPUSCULAR HEMOGLOBIN 29.8 pg (27.0-34.0); MEAN CORPUSCULAR HGB CONC 34.8 g/dL (33.0-35.0); MEAN CORPUSCULAR VOLUME 85.4 fL (80.0-100.0); MEAN PLATELET VOLUME 8.8 fL (7.4-11.0); MONOCYTES # (AUTO) 0.4 x10^3/uL (0.3-0.8); MONOCYTES % (AUTO) 6.9 % (0.0-13.0); NEUTROPHILS # (AUTO) 2.8 x10^3/uL (2.2-4.8); NEUTROPHILS % (AUTO) 54.7 % (42.0-75.0); PLATELET COUNT 125 X10^3/uL (150.0-450.0); RED BLOOD COUNT 3.96 X10^6/uL (3.5-5.4); RED CELL DISTRIBUTION WIDTH 13.9 % (11.6-16.5)
[2023-01-15 06:29] LABS: ALANINE AMINOTRANSFERASE 49 Units/L (12-78); ALBUMIN 3.6 g/dL (3.4-5.0); ALKALINE PHOSPHATASE 63 Units/L (46-116); ASPARTATE AMINO TRANSFERASE 39 Units/L (15-37); BLOOD UREA NITROGEN 12 mg/dL (7-18); CALCIUM 8.8 mg/dL (8.5-10.1); CARBON DIOXIDE 29.6 mmol/L (21-32); CHLORIDE 103 mmol/L (98-107); COR NA(FOR HYPERGLY) 143 mmol/L (136-145); CREATININE 0.85 mg/dL (0.55-1.02); GLUCOSE 236 mg/dL (65-99); POTASSIUM 4.1 mmol/L (3.5-5.1); SODIUM 140 mmol/L (136-145); TOTAL PROTEIN 6.9 g/dL (6.4-8.2); eGFR NON BLACK RACES > 60 (>60)
[2023-01-15] MEDS: COREG TAB 12.5 MG PO SCH ×2 (09:29→20:20)
[2023-01-15] MEDS: NEURONTIN CAP 300 MG PO SCH ×2 (09:29→20:19)
[2023-01-15] MEDS: CHLORTHALIDONE PO SCH (09:29)
[2023-01-15] MEDS: PROTONIX INJ 40 MG VIAL IVP SCH ×2 (09:29→20:21)
[2023-01-15] MEDS: PEPCID 20 MG VIAL 20 MG in NS 50 ML IV 50 ML IV SCH ×2 (09:30→20:21)
[2023-01-15] MEDS: MUCINEX EXPECTORANT PO SCH ×2 (09:30→20:22)
[2023-01-15] MEDS: MYLICON TAB 80 MG CHEW PO PRN (09:38)
[2023-01-15] MEDS: NS 1,000 ML IV 1,000 ML IV SCH ×2 (11:24→15:33)
[2023-01-15] MEDS: NORVASC TAB 5 MG PO SCH (12:33)
[2023-01-15] MEDS: ZOFRAN INJ 4 MG VIAL IVP PRN (19:38)
--- NOTE | 2023-01-15 20:01 | PCM.PROG ---
Progress Note Progress Note for Day of Date of Exam: 01/15/23 Subjective Subjective: The patient is doing much better as she has been eating much more than she had been. Her blood pressure this morning was elevated at 200/110. I added amlodipine 5 mg daily this morning afterwards and throughout the day her blood pressure has trended down some. This evening her blood pressure is 157/70. No new problems other than her elevated blood pressure this morning. Past Medical Family Social History Allergies: Allergies hydrogen peroxide Allergy (Unknown, Verified 01/12/23 12:05) sumatriptan [From Imitrex] Allergy (Verified 01/12/23 12:05) Review of Systems ROS: No change since H&P Vital Signs and I&O's Vital Signs: Vital Signs Temperature 97.8 F Temperature 97.1 F Pulse Rate [Brachial] 60 Pulse Rate [Brachial] 51 Respiratory Rate 20 Respiratory Rate 18 Blood Pressure [Right Arm] 157/70 Blood Pressure [Right Arm] 171/77 O2 Sat by Pulse Oximetry 96 O2 Sat by Pulse Oximetry 94 Intake and Output: Intake & Output 01/13/23 01/14/23 01/15/23 01/16/23 11:59 11:59 11:59 11:59 Intake Total 1803 / 1803 3811 / 3811 3000 / 3000 1730 / 1730 Balance 1803 / 1803 3811 / 3811 3000 / 3000 1730 / 1730 Physical Exam Oriented: Normal Eyes: Normal Throat: Normal Respiratory: Normal Cardiovascular: Normal Auscultation: Bowel Sounds: Normal Tenderness: Normal Skin: Decreased Turgur Musculoskeletal: Normal Psychiatric: Normal and Agitation Mood Description: Appropriate Affect: Normal Speech Pattern: Clear and Appropriate Laboratory and Diagnostics Result Diagrams: 01/15/23 05:40 01/15/23 05:40 Labs: Laboratory WBC 5.0 X10^3/uL (3.6-10.0) 01/15/23 05:40 RBC 3.96 X10^6/uL (3.5-5.4) 01/15/23 05:40 Hgb 11.8 g/dL (12.0-16.0) L 01/15/23 05:40 Hct 33.8 % (36.0-47.0) L 01/15/23 05:40 MCV 85.4 fL (80.0-100.0) 01/15/23 05:40 MCH 29.8 pg (27.0-34.0) 01/15/23 05:40 MCHC 34.8 g/dL (33.0-35.0) 01/15/23 05:40 RDW 13.9 % (11.6-16.5) 01/15/23 05:40 Plt Count 125 X10^3/uL (150.0-450.0) L 01/15/23 05:40 MPV 8.8 fL (7.4-11.0) 01/15/23 05:40 Neut % (Auto) 54.7 % (42.0-75.0) 01/15/23 05:40 Lymph % (Auto) 35.1 % (21.0-51.0) 01/15/23 05:40 [place] % (Auto) 6.9 % (0.0-13.0) 01/15/23 05:40 Eos % (Auto) 2.8 % (0.9-2.9) 01/15/23 05:40 Baso % (Auto) 0.5 % (0.2-1.0) 01/15/23 05:40 Neut # (Auto) 2.8 x10^3/uL (2.2-4.8) 01/15/23 05:40 Lymph # (Auto) 1.8 X10^3/uL (1.3-2.9) 01/15/23 05:40 [place] # (Auto) 0.4 x10^3/uL (0.3-0.8) 01/15/23 05:40 Eos # (Auto) 0.1 x10^3/uL (0.0-0.2) 01/15/23 05:40 Baso # (Auto) 0.0 X10^3/uL (0.0-0.1) 01/15/23 05:40 Absolute Nucleated RBC 0.1 /100WBC 01/15/23 05:40 Sodium 140 mmol/L (136-145) 01/15/23 05:40 Corrected Sodium 143 mmol/L (136-145) 01/15/23 05:40 Potassium 4.1 mmol/L (3.5-5.1) 01/15/23 05:40 Chloride 103 mmol/L (98-107) 01/15/23 05:40 Carbon Dioxide 29.6 mmol/L (21-32) 01/15/23 05:40 BUN 12 mg/dL (7-18) 01/15/23 05:40 Creatinine 0.85 mg/dL (0.55-1.02) 01/15/23 05:40 Est GFR (MDRD) Af Amer > 60 (>60) 01/15/23 05:40 Est GFR (MDRD) Non-Af > 60 (>60) 01/15/23 05:40 Glucose 236 mg/dL (65-99) H 01/15/23 05:40 POC Glucose (mg/dL) 240 mg/dL (65-99) H 01/15/23 16:13 Calcium 8.8 mg/dL (8.5-10.1) 01/15/23 05:40 Corrected Calcium TNP 01/15/23 05:40 Total Bilirubin 0.30 mg/dL (0.2-1.0) 01/15/23 05:40 AST 39 Units/L (15-37) H 01/15/23 05:40 ALT 49 Units/L (12-78) 01/15/23 05:40 Alkaline Phosphatase 63 Units/L (46-116) 01/15/23 05:40 Ammonia 37 umol/L (11-32) H 01/13/23 04:16 Total Protein 6.9 g/dL (6.4-8.2) 01/15/23 05:40 Albumin 3.6 g/dL (3.4-5.0) 01/15/23 05:40 Globulin 3.3 g/dL (2.5-4.5) 01/15/23 05:40 Albumin/Globulin Ratio 1.1 Ratio (1.1-2.1) 01/15/23 05:40 Amylase 33 Units/L (25-115) 01/12/23 14:48 Lipase 173 Units/L (73-393) 01/12/23 14:48 Specimen Type Clean catch urine 01/12/23 17:00 Urine Color Straw (YELLOW) 01/12/23 17:00 Urine Appearance Clear (CLEAR) 01/12/23 17:00 Urine pH 6.5 (5.0 - 8.0) 01/12/23 17:00 Ur Specific [place] 1.015 (1.000-1.030) 01/12/23 17:00 Urine Protein Negative (NEGATIVE) 01/12/23 17:00 Urine Glucose (UA) Negative (NEGATIVE) 01/12/23 17:00 Urine Ketones Negative (NEGATIVE) 01/12/23 17:00 Urine Blood Negative (NEGATIVE) 01/12/23 17:00 Urine Nitrite Negative (NEGATIVE) 01/12/23 17:00 Urine Bilirubin Negative (NEGATIVE) 01/12/23 17:00 Urine Urobilinogen Normal (NORMAL) 01/12/23 17:00 Ur Leukocyte Esterase Negative (NEGATIVE) 01/12/23 17:00 Plan (1) Cirrhosis of liver: Status: Acute Plan: I discontinued the patient's Tylenol at this time. (2) Epigastric pain: Status: Acute Plan: Continue Protonix 40 mg IV twice daily. (3) Hypertension: Status: Acute Plan: Yesterday I added chlorthalidone 25 mg daily to the patient's hypertension regiment however it is not brought down to what she needs it to be. I will go ahead and add amlodipine 5 mg daily at this time so Dr. Roach can reevaluate her blood pressure in the morning. (4) DM (diabetes mellitus), type 2, uncontrolled: Status: Acute Plan: Flat scale regular insulin per protocol. (5) Hypothyroidism: Status: Acute Plan: Continue levothyroxine. (6) Depression: Status: Acute Qualifiers: Active/Remission status: currently active Depression Type: major depressive disorder Major depression episode severity: unspecified Major depression recurrence: unspecified whether recurrent Qualified Code(s): F32.9 - Major depressive disorder, single episode, unspecified
[2023-01-15] MEDS: BENICAR PO SCH (20:19)
[2023-01-15] MEDS: SNACK - Diabetic Appropriate PO SCH (20:19)
[2023-01-15] MEDS: COLACE CAP 100 MG PO PRN (20:20)
[2023-01-15] MEDS: ZETIA TAB 10 MG PO SCH (20:20)
[2023-01-15] MEDS: ATIVAN TAB 1 MG PO PRN (20:20)
[2023-01-15] MEDS: TRICOR TAB 145 MG PO SCH (20:20)
[2023-01-15] MEDS: LEVEMIR SC SCH (20:23)
[2023-01-15] MEDS: AMBIEN PO PRN (21:25)
[2023-01-16 05:21] LABS: BASOPHILS % (AUTO) 0.7 % (0.2-1.0); EOSINOPHILS # (AUTO) 0.1 x10^3/uL (0.0-0.2); EOSINOPHILS % (AUTO) 2.6 % (0.9-2.9); HEMATOCRIT 33.4 % (36.0-47.0); HEMOGLOBIN 11.6 g/dL (12.0-16.0); LYMPHOCYTES % (AUTO) 35.4 % (21.0-51.0); MEAN CORPUSCULAR HEMOGLOBIN 29.6 pg (27.0-34.0); MEAN CORPUSCULAR HGB CONC 34.7 g/dL (33.0-35.0); MEAN CORPUSCULAR VOLUME 85.5 fL (80.0-100.0); MEAN PLATELET VOLUME 8.7 fL (7.4-11.0); MONOCYTES # (AUTO) 0.4 x10^3/uL (0.3-0.8); MONOCYTES % (AUTO) 6.5 % (0.0-13.0); NEUTROPHILS # (AUTO) 3.1 x10^3/uL (2.2-4.8); NEUTROPHILS % (AUTO) 54.8 % (42.0-75.0); PLATELET COUNT 127 X10^3/uL (150.0-450.0); RED CELL DISTRIBUTION WIDTH 14.1 % (11.6-16.5); WHITE BLOOD COUNT 5.7 X10^3/uL (3.6-10.0)
[2023-01-16 05:29] LABS: ALANINE AMINOTRANSFERASE 46 Units/L (12-78); ALBUMIN 3.6 g/dL (3.4-5.0); ALKALINE PHOSPHATASE 52 Units/L (46-116); ASPARTATE AMINO TRANSFERASE 31 Units/L (15-37); BLOOD UREA NITROGEN 16 mg/dL (7-18); CALCIUM 8.7 mg/dL (8.5-10.1); CHLORIDE 102 mmol/L (98-107); COR NA(FOR HYPERGLY) 143 mmol/L (136-145); CREATININE 0.87 mg/dL (0.55-1.02); GLUCOSE 285 mg/dL (65-99); POTASSIUM 3.6 mmol/L (3.5-5.1); SODIUM 139 mmol/L (136-145); TOTAL PROTEIN 6.9 g/dL (6.4-8.2); eGFR NON BLACK RACES > 60 (>60)
[2023-01-16] MEDS: SYNTHROID 100 mcg TAB PO SCH (05:35)
[2023-01-16] MEDS: SYNTHROID 125 mcg TAB PO SCH (05:35)
[2023-01-16] MEDS: REGLAN TAB 5 MG PO SCH ×4 (05:35→20:18)
[2023-01-16] MEDS: NS 1,000 ML IV 1,000 ML IV SCH (05:36)
[2023-01-16] MEDS: NovoLIN R (or HumuLIN R) SUBCUT PRN ×4 (05:37→20:14)
[2023-01-16] MEDS: NEURONTIN CAP 300 MG PO SCH ×2 (09:30→20:17)
[2023-01-16] MEDS: PROTONIX INJ 40 MG VIAL IVP SCH ×2 (09:30→20:20)
[2023-01-16] MEDS: PEPCID 20 MG VIAL 20 MG in NS 50 ML IV 50 ML IV SCH ×2 (09:30→20:20)
[2023-01-16] MEDS: NORVASC TAB 5 MG PO SCH (09:30)
[2023-01-16] MEDS: CHLORTHALIDONE PO SCH (09:31)
[2023-01-16] MEDS: COREG TAB 12.5 MG PO SCH ×2 (09:31→20:19)
[2023-01-16] MEDS: MUCINEX EXPECTORANT PO SCH ×2 (09:31→20:20)
[2023-01-16] MEDS: NS + KCL 20 MEQ/L 1,000 ML IV SCH (11:10)
[2023-01-16] MEDS: ZOFRAN INJ 4 MG VIAL IVP PRN (14:27)
[2023-01-16] MEDS: LEVEMIR SC SCH (20:15)
[2023-01-16] MEDS: BENICAR PO SCH (20:16)
[2023-01-16] MEDS: ATIVAN TAB 1 MG PO PRN (20:17)
[2023-01-16] MEDS: ZETIA TAB 10 MG PO SCH (20:17)
[2023-01-16] MEDS: TRICOR TAB 145 MG PO SCH (20:18)
[2023-01-16] MEDS: AMBIEN PO PRN (20:18)
[2023-01-16] MEDS: SNACK - Diabetic Appropriate PO SCH (20:19)
[2023-01-16] MEDS: COLACE CAP 100 MG PO PRN (20:19)
[2023-01-16] MEDS ORDERED: NORVASC TAB 5 MG PO ONE (21:34)
--- NOTE | 2023-01-16 21:56 | PCM.PROG ---
Progress Note - Progress Note for Day of Date of Exam: 01/16/23 - Subjective Subjective: IS A 63 YEAR OLD PATIENT OF OURS. SHE WAS ADMITTED OBSERVATION STATUS FOR TREATMENT OF EPIGASTRIC PAIN, CIRRHOSIS OF LIVER, UNCONTROLLED HTN. SHE HAS A PMH OF TYPE 2 DIABETES, NEUROPATHY, HYPOTHYROIDISM, AND DEPRESSION. SHE HAS BEEN HYPERTENSIVE OVER THE WEEKEND. STARTED HER ON AMLODIPINE 5MG DAILY. SHE CONTINUED TO BE HYPERTENSIVE AFTER RECEIVING THE AMLODIPINE. TODAY, SHE IS ALERT AND ORIENTED, SITTING UP IN BED ON MORNING ROUNDS. SHE CONTINUES TO COMPLAIN OF INTERMITTENT NAUSEA THIS MORNING. NURSING STAFF REPORTS SHE HAS HAD MULTIPLE LARGE MEALS YESTERDAY. ON EXAMINATION, HEART IS REGULAR IN RATE AND RHYTHM. BILATERAL LUNGS ARE NOTED WITH DIMINISHED LUNG SOUNDS THROUGHOUT. ABDOMEN IS OBESE, SOFT, AND NON-TENDER WITH NORMAL BOWEL SOUNDS NOTED IN ALL QUADRANTS. HER VITALS THIS MORNING ARE: 97.9-80-20-94%-159/71. LABS WERE OBTAINED. WBC 5.7, RBC 3.90, HGB 11.6, HCT 33.4, PLT COUNT 127, SODIUM 139, POTASSIUM 3.6, CHLORIDE 102, CARBON DIOXIDE 31, BUN 16, CREATININE 0.87, GLUCOSE 285, CALCIUM 8.7, AST 31, ALT 46, ALK PHOS 52, TOTAL PROTEIN 6.9, ALBUMIN 3.6. SHE IS CURRENTLY RECEIVING NORMAL SALINE WITH 20MEQ KCL AT 75 ML/HR, PEPCID 20MG IV Q12H, PROTONIX 40MG IV BID, AMLODIPINE 5MG DAILY, CHLORTHALIDONE 25MG DAILY, COLACE 200MG Q12H PRN, MILK OF MAGNESIA 30ML Q12H PRN, PROVENTIL NEBS BID PRN, OTBS ACHS, HUMULIN R SLIDING SCALE, REGLAN 5MG ACHS, MORPHINE 2MG IV Q4H PRN, ZOFRAN 4MG IV Q4H PRN, AMBIEN 10MG PO HS PRN, LEVEMIR 16 UNITS SC HS, AND HER HOME MEDICATIONS WERE RESUMED. HOME MEDS INCLUDE: TYLENOL, ZETIA, TRICOR, NEURONTIN, MUCINEX, SYNTHROID, ATIVAN, REGLAN, BENICAR, AND MYLICON. WE WILL INCREASE HER NORVASC TO 10MG DAILY. OTHERWISE, WE WILL CONTINUE WITH CURRENT PLAN OF CARE. WE WILL ORDER AN OUTPATIENT GASTRIC EMPTY SCAN, DUE TO NUCLEAR MEDICINE BEING DOWN AT THIS FACILITY. OTHERWISE, WE FOLLOW-UP WITH AM LABS AND CONTINUE TO MONITOR. TIME SPENT ON CLINICAL ASSESSMENT, REVIEWING LABS AND IMAGING, DECISION MAKING, AND DOCUMENTATION GREATER THAN 45 MINUTES. - Past Medical Family Social History Past Med/Fam/Surg Hx: No changes since H&P Allergies: Allergies hydrogen peroxide Allergy (Unknown, Verified 01/12/23 12:05) sumatriptan [From Imitrex] Allergy (Verified 01/12/23 12:05) - Review of Systems ROS: No change since H&P - Vital Signs and I&O's Vital Signs: Vital Signs Temperature 98.0 F Temperature 98.3 F Pulse Rate [Brachial] 69 Pulse Rate [Brachial] 63 Respiratory Rate 18 Respiratory Rate 20 Blood Pressure [Left Arm] 181/84 Blood Pressure [Left Arm] 151/66 O2 Sat by Pulse Oximetry 95 O2 Sat by Pulse Oximetry 94 Intake and Output: Intake & Output 01/14/23 01/15/23 01/16/23 01/17/23 11:59 11:59 11:59 11:59 Intake Total 3811 / 3811 3000 / 3000 4883 / 4883 1500 / 1500 Balance 3811 / 3811 3000 / 3000 4883 / 4883 1500 / 1500 - Physical Exam Oriented: Normal Eyes: Normal Ear: Normal Nose: Normal Throat: Normal Respiratory: Normal Cardiovascular: Normal : Normal Auscultation: Bowel Sounds: Normal Palpation: Normal Tenderness: Normal Skin: Decreased [place]urgur Musculoskeletal: Normal Psychiatric: Normal, Agitation Mood Description: Appropriate Affect: Normal Speech Pattern: Clear, Appropriate - Laboratory and Diagnostics Result Diagrams: 01/16/23 04:45 01/16/23 04:45 Labs: Laboratory WBC 5.7 X10^3/uL (3.6-10.0) 01/16/23 04:45 RBC 3.90 X10^6/uL (3.5-5.4) 01/16/23 04:45 Hgb 11.6 g/dL (12.0-16.0) L 01/16/23 04:45 Hct 33.4 % (36.0-47.0) L 01/16/23 04:45 MCV 85.5 fL (80.0-100.0) 01/16/23 04:45 MCH 29.6 pg (27.0-34.0) 01/16/23 04:45 MCHC 34.7 g/dL (33.0-35.0) 01/16/23 04:45 RDW 14.1 % (11.6-16.5) 01/16/23 04:45 Plt Count 127 X10^3/uL (150.0-450.0) L 01/16/23 04:45 MPV 8.7 fL (7.4-11.0) 01/16/23 04:45 Neut % (Auto) 54.8 % (42.0-75.0) 01/16/23 04:45 Lymph % (Auto) 35.4 % (21.0-51.0) 01/16/23 04:45 [place] % (Auto) 6.5 % (0.0-13.0) 01/16/23 04:45 Eos % (Auto) 2.6 % (0.9-2.9) 01/16/23 04:45 Baso % (Auto) 0.7 % (0.2-1.0) 01/16/23 04:45 Neut # (Auto) 3.1 x10^3/uL (2.2-4.8) 01/16/23 04:45 Lymph # (Auto) 2.0 X10^3/uL (1.3-2.9) 01/16/23 04:45 [place] # (Auto) 0.4 x10^3/uL (0.3-0.8) 01/16/23 04:45 Eos # (Auto) 0.1 x10^3/uL (0.0-0.2) 01/16/23 04:45 Baso # (Auto) 0.0 X10^3/uL (0.0-0.1) 01/16/23 04:45 Absolute Nucleated RBC 0.1 /100WBC 01/16/23 04:45 Sodium 139 mmol/L (136-145) 01/16/23 04:45 Corrected Sodium 143 mmol/L (136-145) 01/16/23 04:45 Potassium 3.6 mmol/L (3.5-5.1) 01/16/23 04:45 Chloride 102 mmol/L (98-107) 01/16/23 04:45 Carbon Dioxide 31.0 mmol/L (21-32) 01/16/23 04:45 BUN 16 mg/dL (7-18) 01/16/23 04:45 Creatinine 0.87 mg/dL (0.55-1.02) 01/16/23 04:45 Est GFR (MDRD) Af Amer > 60 (>60) 01/16/23 04:45 Est GFR (MDRD) Non-Af > 60 (>60) 01/16/23 04:45 Glucose 285 mg/dL (65-99) H 01/16/23 04:45 POC Glucose (mg/dL) 242 mg/dL (65-99) H 01/16/23 19:39 Calcium 8.7 mg/dL (8.5-10.1) 01/16/23 04:45 Corrected Calcium TNP 01/16/23 04:45 Total Bilirubin 0.50 mg/dL (0.2-1.0) 01/16/23 04:45 AST 31 Units/L (15-37) 01/16/23 04:45 ALT 46 Units/L (12-78) 01/16/23 04:45 Alkaline Phosphatase 52 Units/L (46-116) 01/16/23 04:45 Ammonia 37 umol/L (11-32) H 01/13/23 04:16 Total Protein 6.9 g/dL (6.4-8.2) 01/16/23 04:45 Albumin 3.6 g/dL (3.4-5.0) 01/16/23 04:45 Globulin 3.3 g/dL (2.5-4.5) 01/16/23 04:45 Albumin/Globulin Ratio 1.1 Ratio (1.1-2.1) 01/16/23 04:45 Amylase 33 Units/L (25-115) 01/12/23 14:48 Lipase 173 Units/L (73-393) 01/12/23 14:48 Specimen Type Clean catch urine 01/12/23 17:00 Urine Color Straw (YELLOW) 01/12/23 17:00 Urine Appearance Clear (CLEAR) 01/12/23 17:00 Urine pH 6.5 (5.0 - 8.0) 01/12/23 17:00 Ur Specific [place] 1.015 (1.000-1.030) 01/12/23 17:00 Urine Protein Negative (NEGATIVE) 01/12/23 17:00 Urine Glucose (UA) Negative (NEGATIVE) 01/12/23 17:00 Urine Ketones Negative (NEGATIVE) 01/12/23 17:00 Urine Blood Negative (NEGATIVE) 01/12/23 17:00 Urine Nitrite Negative (NEGATIVE) 01/12/23 17:00 Urine Bilirubin Negative (NEGATIVE) 01/12/23 17:00 Urine Urobilinogen Normal (NORMAL) 01/12/23 17:00 Ur Leukocyte Esterase Negative (NEGATIVE) 01/12/23 17:00 - Plan (1) Cirrhosis of liver Status: Acute Qualifiers: Hepatic cirrhosis type: unspecified hepatic cirrhosis Ascites presence: without ascites Qualified Code(s): K74.60 - Unspecified cirrhosis of liver Plan: NORMAL SALINE WITH 20MEQ KCL AT 75 ML/HR, PEPCID 20MG IV Q12H, PROTONIX 40MG IV BID, AMLODIPINE 5MG DAILY, CHLORTHALIDONE 25MG DAILY, COLACE 200MG Q12H PRN, MILK OF MAGNESIA 30ML Q12H PRN, PROVENTIL NEBS BID PRN, OTBS ACHS, HUMULIN R SLIDING SCALE, REGLAN 5MG ACHS, MORPHINE 2MG IV Q4H PRN, ZOFRAN 4MG IV Q4H PRN, AMBIEN 10MG PO HS PRN, LEVEMIR 16 UNITS SC HS, AND HER HOME MEDICATIONS WERE RESUMED. (2) Epigastric pain Status: Acute Plan: Continue Protonix 40 mg IV twice daily. (3) Hypertension Status: Acute Qualifiers: Hypertension type: primary hypertension Qualified Code(s): I10 - Essential (primary) hypertension Plan: CONTINUE AMLODIPINE AND CHLORTHALIDONE (4) DM (diabetes mellitus), type 2, uncontrolled Status: Chronic Qualifiers: Glycemic state: with hyperglycemia Qualified Code(s): E11.65 - Type 2 diabetes mellitus with hyperglycemia Plan: sliding scale regular insulin per protocol. (5) Depression Status: Chronic Qualifiers: Depression Type: major depressive disorder Major depression recurrence: unspecified whether recurrent Active/Remission status: currently active Major depression episode severity: unspecified Qualified Code(s): F32.9 - Major depressive disorder, single episode, unspecified Plan: continue levemir (6) Hypothyroidism Status: Chronic Qualifiers: Hypothyroidism type: acquired Qualified Code(s): E03.9 - Hypothyroidism, unspecified Plan: Continue levothyroxine. (7) Neuropathy Status: Chronic Plan: continue gabapentin
[2023-01-17 04:58] LABS: BASOPHILS % (AUTO) 0.6 % (0.2-1.0); EOSINOPHILS # (AUTO) 0.2 x10^3/uL (0.0-0.2); EOSINOPHILS % (AUTO) 2.7 % (0.9-2.9); HEMATOCRIT 33.1 % (36.0-47.0); HEMOGLOBIN 11.5 g/dL (12.0-16.0); LYMPHOCYTES # (AUTO) 2.1 X10^3/uL (1.3-2.9); LYMPHOCYTES % (AUTO) 32.7 % (21.0-51.0); MEAN CORPUSCULAR HEMOGLOBIN 29.7 pg (27.0-34.0); MEAN CORPUSCULAR HGB CONC 34.8 g/dL (33.0-35.0); MEAN CORPUSCULAR VOLUME 85.5 fL (80.0-100.0); MEAN PLATELET VOLUME 8.6 fL (7.4-11.0); MONOCYTES # (AUTO) 0.5 x10^3/uL (0.3-0.8); MONOCYTES % (AUTO) 8.2 % (0.0-13.0); NEUTROPHILS # (AUTO) 3.5 x10^3/uL (2.2-4.8); NEUTROPHILS % (AUTO) 55.8 % (42.0-75.0); PLATELET COUNT 125 X10^3/uL (150.0-450.0); RED BLOOD COUNT 3.87 X10^6/uL (3.5-5.4); WHITE BLOOD COUNT 6.3 X10^3/uL (3.6-10.0)
[2023-01-17 05:34] LABS: ALANINE AMINOTRANSFERASE 44 Units/L (12-78); ALBUMIN 3.6 g/dL (3.4-5.0); ALKALINE PHOSPHATASE 68 Units/L (46-116); ASPARTATE AMINO TRANSFERASE 30 Units/L (15-37); BLOOD UREA NITROGEN 17 mg/dL (7-18); CALCIUM 8.8 mg/dL (8.5-10.1); CARBON DIOXIDE 29.3 mmol/L (21-32); CHLORIDE 101 mmol/L (98-107); COR NA(FOR HYPERGLY) 143 mmol/L (136-145); CREATININE 0.85 mg/dL (0.55-1.02); GLUCOSE 277 mg/dL (65-99); POTASSIUM 3.8 mmol/L (3.5-5.1); SODIUM 139 mmol/L (136-145); TOTAL PROTEIN 6.8 g/dL (6.4-8.2); eGFR NON BLACK RACES > 60 (>60)
[2023-01-17] MEDS: SYNTHROID 100 mcg TAB PO SCH (05:37)
[2023-01-17] MEDS: REGLAN TAB 5 MG PO SCH ×2 (05:37→11:22)
[2023-01-17] MEDS: SYNTHROID 125 mcg TAB PO SCH (05:38)
[2023-01-17] MEDS: NovoLIN R (or HumuLIN R) SUBCUT PRN ×2 (05:40→11:21)
[2023-01-17] MEDS ORDERED: NORVASC TAB 5 MG PO SCH (09:00)
[2023-01-17] MEDS: PROTONIX INJ 40 MG VIAL IVP SCH (09:01)
[2023-01-17] MEDS: PEPCID 20 MG VIAL 20 MG in NS 50 ML IV 50 ML IV SCH (09:01)
[2023-01-17] MEDS: MUCINEX EXPECTORANT PO SCH (09:02)
[2023-01-17] MEDS: NEURONTIN CAP 300 MG PO SCH (09:02)
[2023-01-17] MEDS: CHLORTHALIDONE PO SCH (09:02)
[2023-01-17] MEDS: COREG TAB 12.5 MG PO SCH (09:02)
[2023-01-17] MEDS: NS + KCL 20 MEQ/L 1,000 ML IV SCH (09:54)
[2023-01-17 10:05] VITALS: O2SAT 95
[2023-01-17 11:32] VITALS: BP 116/55; PULSE 53; RESP 18; TEMP 97.7
== END 2023-01-17 12:15 | disposition home or self-care (01) | DRG 434 ==
LOC: MED/SURG
PROVIDERS: ADMIT Internal Medicine; ATTEND Internal Medicine
DX: F32.89 Other specified depressive episodes; I10 Essential (primary) hypertension; K74.69 Other cirrhosis of liver; R63.0 Anorexia; K21.9 Gastro-esophageal reflux disease without esophagitis; R10.13 Epigastric pain; G62.9 Polyneuropathy, unspecified; K57.30 Diverticulosis of large intestine without perforation or abscess without bleeding; E11.65 Type 2 diabetes mellitus with hyperglycemia; E03.8 Other specified hypothyroidism